=== PATIENT | male | born 1950 | race Caucasian/White ===

== ENCOUNTER 2019-11-04 17:32 | Observation (INO) | payer MEDICARE, OTHER ==
[~2019-11-04] VITALS: Ht 177.8 cm; Wt 83.3 kg
[2019-11-04] VITALS (10 sets, daily range): BP systolic 107–118; BP diastolic 67–77; PULSE 83–94; TEMP 97.9
[~2019-11-04 17:32] MED LIST: BACTROBAN NASA0.9 GM NS; CALCIUM CARB PO; CARDIZEM120 MG PO; CEPHALEXIN500 M1 PO; CLARITIN 1010 MG/TAB PO; COUMADIN4 MG PO; CYANOCOBAL1000 MCG/M IM; DITROPAN 5MG TAB5 MG PO; FERROUS SU325 MG/TAB PO; FLONASE NASAL S16 GM NS; FORTESTA10 MG/0.5 TP; GLUCOPHAGE XR500 M1 PO; LOVENOX 8080 MG/0.8 SQ; PATANOL OPHTHALM5 ML OU; PROSCAR 5MG5 MG PO; SYNTHROID0.1 MG/TAB PO; TAMBOCOR50 MG PO; VITAMIN D 1001000 IU PO; ZANTAC 300300 MG PO; [UNRECOGNIZED DRUG - OTHER] PO
[2019-11-04] MEDS ORDERED: PROTONIX 40MG T40 MG PO (18:24)
--- NOTE | 2019-11-04 19:00 | NUR ---
Received report from MARY Blackburn. Pt is currently lying in bed and his is at his bedside and Dr. Badillo has been in and spoke to pt. Pt is due to have a procedure tonight. Pt has his call light within reach and his bed is in lowest position.
--- NOTE | 2019-11-04 21:15 | NUR ---
Pt returned back from surgery. Pt is at his bedside. Pt vitals are all within normal limits. Pt stated that he has no pain at this time. Pt lungs sounds were clear and heart sounds were normal S1 and S2 sounds. Pt has a dressing on his abdomen that is clean dry and intact. Pt has a DAKOTA drain which has no drainage at this time. Pt has been able to tolerate some ice chips at this time. Pt has his call light within reach and has no other request at this time. Pt did agree to try some jello.
[2019-11-05] VITALS (7 sets, daily range): BP systolic 95–122; BP diastolic 63–82; PULSE 77–94; TEMP 97.8–98.3
--- NOTE | 2019-11-05 05:13 | NUR ---
Pt currently resting in bed pt has no complaints of pain at this time. Pt has his CPap on and is restin well. pt has his call light within reach.
--- NOTE | 2019-11-05 06:20 | NUR ---
Pt stated that he was having some pain this morning. Pt was given Tylenol at this time. He did request an ice pack. He stated that he has some pain in his groin area. Pt was given a small ice pack at this time. Pt has his call light within reach.
[2019-11-05 06:48] LABS: HEMOGLOBIN 11.3 g/dl (13.5-18.0); MEAN CELL VOLUME 91 fl (80.0-100.0); MEAN CORPUSCULAR HEMOGLOBIN 30 pg (27.0-31.0); MEAN CORPUSCULAR HGB CONC 33 g/dl (33.0-37.0); MEAN PLATELET VOLUME 11.5 fl (7.4-10.4); PLATELET COUNT 156 K/mm3 (130-400); RED BLOOD COUNT 3.73 M/mm3 (4.20-5.60); REDCELL DISTRIBUTION WIDTH-CV 13.9 % (11.5-14.5)
--- NOTE | 2019-11-05 07:43 | NUR ---
PATIENT RESTING IN BED THIS MORNING. PATIENT IS A&OX4. BOWEL SOUNDS ACTIVE ALL FOUR QUADRANTS. LOW ABDOMEN INCISION DRESSED WITH GAUZE & HYPAFIX WITH SCANT AMOUNT OF OLD DRAINAGE PRESENT. RIGHT-SIDED ABDOMINAL DAKOTA DRAIN TO BLULB SUCTION WITH SMALL AMOUNTS OF BRIGHT BLOODY DRAINAGE PRESENT IN BULB. DAKOTA DRAIN EMPTIED AT THIS TIME. SCANT AMOUNT OF DRAINAGE TO DAKOTA SITE DRESSING. PATIENT REFUSED HIS METFORMIN THIS MORNING DUE TO HAVING A CT SCAN YESTERDAY. PATIENT ALSO REFUSED THE BACTROBAN NASAL OINTMENT. PATIENT STATES THAT HE ONLY PUTS THAT ON BEFORE WEARING HIS CPAP AT NIGHT. PATIENT REPORTS BURNING PAIN TO THE LOW ABDOMEN AND RIGHT GROIN THAT IMPROVES WITH ICE. TYLENOL GIVEN BY DIRECTOR OF RETAIL MARKETING IN BUSINESS IMPROVEMENT MANAGER. ICE PACK IN PLACE TO RIGHT GROIN. ECCHYMOSIS TO RIGHT GROIN SITE NOTED. POSITIVE PEDAL PULSES EQUAL BILATERALLY. SCD'S TO BLE. CALL LIGHT IN REACH. NO OTHER NEEDS AT THIS TIME.
--- NOTE | 2019-11-05 11:09 | NUR ---
PATIENT CALLED OUT STATING THAT HE NEEDS SOMETHING FOR PAIN. ITS TOO SOON FOR TYLENOL. PRN ULTRAM GIVEN. ICE PACK RE-FILLED AND APPLIED TO RIGHT GROIN. SCD'S TO BLE. 15MLS OF BLOODY DRAINAGE EMPTIED FROM DAKOTA DRAIN. DRAIN PLACED TO BULB SUCTION. TV ON. PRESENT AT THE BEDSIDE. CALL LIGHT WITHIN REACH.
--- NOTE | 2019-11-05 15:15 | NUR ---
PATIENT AMBULATED IN THE HALLWAYS WITH HIS . PATIENT STATES THAT HE WAS UP WALKING FOR ABOUT A HALF HOUR. PATIENT CURRENTLY RESTING IN BED. SCD'S REAPPLIED TO BLE. PATIENT DENIES ANY NEEDS AT THIS TIME.
--- NOTE | 2019-11-06 02:32 | NUR ---
Patient has rested well throughout the night. PRN pain medication given per orders when requested. Ultram last given at 1930 for pain level of 6/10. Tylenol given at 2300 and states pain level is a 3/10 at that time. Patient has been resting with eyes closed since then. Low transverse incision is covered by gauze and hypafix. Noted to have minimal drainage to right side of dressing. DAKOTA drain noted to have a gauze dressing present as well. No drainage noted on this dressing. Coumadin PO started this shift. Lovenox was also given. Patient continues on PO Keflex. Independent in the room. INT to left forearm. Wears CPAP at night. DAKOTA drain is draining 15ml of red drainage so far this shift. Will continue to monitor patient.
[2019-11-06 04:00] VITALS: BP 112/77; PULSE 80; TEMP 98.1
[2019-11-06 07:13] LABS: HEMOGLOBIN 11.2 g/dl (13.5-18.0)
[2019-11-06 07:19] VITALS: BP 98/58; PULSE 87; TEMP 98.5
[2019-11-06 07:23] LABS: INR 1.3 (0.8-3.0); PROTHROMBIN TIME 14.9 SECONDS (9.7-12.8)
[2019-11-06 07:24] LABS: HEMATOCRIT 34.6 % (42.0-52.0)
[2019-11-06] MEDS ORDERED: CEPHALEXIN500 M1 PO (08:43)
[2019-11-06] MEDS ORDERED: LOVENOX 4040 MG/0.4 SQ (08:46)
--- NOTE | 2019-11-06 08:47 | NUR ---
Dr Badillo here to see patient.
--- NOTE | 2019-11-06 08:50 | NUR ---
Initial visit; Patient awaiting Physician's return, Educational Audiologist informed patient of the availability of spiritual care and offered him God's blessings. Educational Audiologist will look in on patient another time.
--- NOTE | 2019-11-06 10:07 | NUR ---
Patient alert and oriented, answers questions appropriately. See assessment. Abdomen soft, non tender, non distended. Bowel sounds active x4 quads. +Flatus. No BM. RLQ transverse incision with edges well approximated, no redness or drainage noted. DAKOTA to RLQ with scant amount of serosanguinous drainage noted. DAKOTA compressed to bulb suction. Tenderness noted to RLQ. No other c/o at this time.
[2019-11-06 11:04] VITALS: BP 119/79; PULSE 75; TEMP 97.9
--- NOTE | 2019-11-06 15:45 | NUR ---
Discharge instructions reviewed with patient and spouse, verbalized understanding. Discharged via wheelchair to auto/home with spouse at 1545.
== END 2019-11-06 15:45 | disposition home or self-care (01) ==
LOC: MEDICAL 17:32 → SURG 18:01
PROVIDERS: ADMIT Surgery
DX: M96.840 Postprocedural hematoma of a musculoskeletal structure following a musculoskeletal system procedure (principal); I10 Essential (primary) hypertension; E11.9 Type 2 diabetes mellitus without complications; E03.9 Hypothyroidism, unspecified; G47.30 Sleep apnea, unspecified; I48.91 Unspecified atrial fibrillation; K21.9 Gastro-esophageal reflux disease without esophagitis; Z95.2 Presence of prosthetic heart valve; Z79.01 Long term (current) use of anticoagulants; Z79.899 Other long term (current) drug therapy; Z86.73 Personal history of transient ischemic attack (TIA), and cerebral infarction without residual deficits; Z88.7 Allergy status to serum and vaccine; Z91.010 Allergy to peanuts; Z90.79 Acquired absence of other genital organ(s); Z90.89 Acquired absence of other organs; Z85.858 Personal history of malignant neoplasm of other endocrine glands; Z85.828 Personal history of other malignant neoplasm of skin; Z79.84 Long term (current) use of oral hypoglycemic drugs
CPT/HCPCS: G0378; J0690; J1650; J2405; J2704; J3010

== ENCOUNTER 2023-06-27 12:02 | Outpatient (RCR) | payer MEDICARE, OTHER ==
[~2023-06-27 12:02] MED LIST changes: +LOVENOX 4040 MG/0.4 SQ; +PROTONIX 40MG T40 MG PO
== END 2023-06-28 | disposition home or self-care (01) ==
LOC: COL.CR
DX: I34.0 Nonrheumatic mitral (valve) insufficiency (principal)